=== PATIENT | male | born 1955 | race Hispanic/Latino ===

== ENCOUNTER 2023-07-04 08:28 | Outpatient (CLI) | payer MEDICARE ==
[2023-07-04] MEDS ORDERED: Iopamidol 370 76% 100 ML VIAL ONE (08:31)
== END 2023-07-04 08:29 | disposition home or self-care (01) ==
LOC: MADCT 08:28
PROVIDERS: ATTEND Registered Nurse
DX: I67.1 Cerebral aneurysm, nonruptured (principal)
CPT/HCPCS: 36415; 70496; 82565; Q9967